=== PATIENT | female | born 1945 | race African-American/Black ===

== ENCOUNTER → 2016-11-17 | Day surgery (SDC) | payer BC, MEDICAID ==
[~2016-11-17] VITALS: Ht 167.6 cm; Wt 92.1 kg
[~2016-11-17] MED LIST: AMLODIPINE BESYL5 MG ORAL; ARICEPT10 MG ORAL; ASPIR 8181 MG ORAL; ATORVASTATIN CA80 MG ORAL; BSS 15ml BTL ONE; BSS 500ml btl ONE; Dexamethasone 4mg/ml vial ONE; EPINEPHrine 1mg/1ml Amp ONE; FLONASE ALLERG9.9 ML NS; KEPPRA1000 MG ORAL; LASIX40 MG ORAL; LR 1000ml ONE; Lidocaine 1% MPF 10mg/ml 5ml ONE; METOPROLOL SUCC25 MG ORAL; MULTIVITAMINS1 EAC2 ORAL; Midazolam 2mg/2ml Inj ONE; NEURONTIN100 MG ORAL; NITROSTAT0.4 M1 SL; NORCO 5-325 TA1 EAC1 ORAL; NS Irrig 1000ml ONE; PANTOPRAZOLE SO40 MG ORAL; PLAQUENIL200 MG ORAL; PLAVIX75 MG ORAL; PROAIR HFA8.5 GM INH; PROZAC20 MG ORAL; Povidone-Iodine 5% opth solution ONE; REQUIP0.25 MG ORAL; RESTASIS1 EACH BOTH EYES; Sodium Hyaluronate 14 mg/ml 0.85ml ONE; Sterile Water Irrig 1000ml IRRIG ONE; VOLTAREN100 G1 TP; XANAX0.5 MG ORAL; fentaNYL 100 mcg/2 mL IV ONE
--- NOTE | 2016-11-17 07:46 | Pre-Procedure Note/Attestation ---
Pre-Procedure Note/Attestation Complete Prior to Procedure Planned Procedure: left Procedure Narrative: cataract extraction with implant left eye Indications for Procedure Pre-Operative Diagnosis: cataract left eye Attestation I attest that I discussed the nature of the procedure; its benefits; risks and complications; and alternatives (and the risks and benefits of such alternatives ), prior to the procedure, with the patient (or the patient's legal printing sales representative). I attest that, if there was a reasonable possibility of needing a blood transfusion, the patient (or the patient's legal printing sales representative) was given the [facility] standardized written summary, pursuant to the [place] Blood Safety Act ([place] Health and Safety Code # 1645, as amended). I attest that I re-evaluated the patient just prior to the surgery and that there has been no change in the patient's H&P, except as documented below: SHANNON GAMING Nov 17, 2016 07:46
[2016-11-17] MEDS: Tropicamide 1% Opth Soln LEFT EYE SCH ×3 (09:21→09:44)
[2016-11-17] MEDS: Phenylephrine 2.5% Op Soln LEFT EYE SCH ×3 (09:21→09:44)
[2016-11-17] MEDS: Diclofenac Sod 0.1% Op Soln LEFT EYE SCH ×3 (09:22→09:45)
[2016-11-17] MEDS: Gatifloxacin Opth Solution 0.5% LEFT EYE SCH ×3 (09:22→09:45)
[2016-11-17] MEDS: Tobradex Opth Susp 2.5ml LEFT EYE SCH ×3 (09:22→09:45)
[2016-11-17] MEDS: Akten 3.5% 1ml Btl LEFT EYE SCH ×3 (09:23→09:45)
[2016-11-17 09:56] VITALS: BP 137/78
--- NOTE | 2016-11-17 10:17 | Anethesia Preoperative Eval ---
Anesthesia Pre-op PMH/ROS General Date of Evaluation: Nov 17, 2016 Time of Evaluation: 10:15 Anesthesiologist: terrance ASA Score: ASA 3 Mallampati Score Class I : Soft palate, uvula, fauces, pillars visible Class II: Soft palate, uvula, fauces visible Class III: Soft palate, base of uvula visible Class IV: Only hard plate visible Mallampati Classification: Class III Surgeon: conrad Diagnosis: cataract Surgical Procedure: cataract extraction left eye Anesthesia History: none Family History: no anesthesia problems Allergies: Coded Allergies: No Known Allergies (Unverified , 08/31/16) Medications: see eMAR Past Medical History Cardiovascular: Reports: CAD, HTN, arrhythmia Gastrointestinal/Genitourinary: Denies: CRI, ESRD, GERD, other Neurologic/Psychiatric: Reports: CVA, depression/anxiety Endocrine: Reports: DM HEENT: Reports: cataract (L) Hematology/Immune: Reports: DVT Musculoskeletal/Integumentary: Reports: OA Other: obesity PSxH Narrative: ICD placement Anesthesia Pre-op Phys. Exam Physician Exam Last Vital Signs Date Time Temp Pulse Resp B/P Pulse Ox O2 Delivery O2 Flow Rate FiO2 11/17/16 09:56 97.2 61 18 137/78 98 Room Air Constitutional: NAD Neurologic: CN 2-12 intact Cardiovascular: RRR Respiratory: CTA Gastrointestinal: S/NT/ND Airway Exam Mallampati Classification 3 MO: full ROM: full Dentures: no lower, no upper Anesthesia Pre-op A/P Studies Pre-op Studies: EKG - SR Risk Assessment & Plan Assessment: denies CP/SOB Plan: mac Status Change Before Surgery: No Pre-Antibiotics Drug: none JONA CERRATO CRNA Nov 17, 2016 10:17
[2016-11-17 10:25] VITALS: BP 136/81
--- NOTE | 2016-11-17 10:28 | Brief Operative Note ---
Immediate Post Operative Note Operative Note Pre-op Diagnosis: cataract left eye Procedure: phacoemulsification of cataract with implant left eye Post-op Diagnosis: same as pre-op Surgeon: shannon martines Lumber Press Operator: none Anesthesiologist: ryan carlos crna Anesthesia: MAC Specimen: none Complications: none Condition: stable Estimated Blood Loss: none Drains: none Implant(s) used?: Yes SHANNON MARTINES Nov 17, 2016 10:28
[2016-11-17 10:30] VITALS: BP 136/75
[2016-11-17 10:35] VITALS: BP 135/76
[2016-11-17 10:50] VITALS: BP 134/79
--- NOTE | 2016-11-17 10:52 | 48 Hour Post Anesthesia Eval ---
Post Anesthesia Evaluation Procedure: cataract extraction Date of Evaluation: Nov 17, 2016 Time of Evaluation: 10:52 Blood Pressure Systolic: 135 0: 76 Pulse Rate: 74 Respiratory Rate: 14 O2 Sat by Pulse Oximetry: 98 Airway: patent Nausea: No Vomiting: No Hydration Status: adequate Mental Status/LOC: patient returned to baseline Post-Anesthesia Complications: none Follow-up care needed: N/A JONA CERRATO CRNA Nov 17, 2016 10:52
--- NOTE | 2016-11-17 10:53 | Immediate Post-Op Evaluation ---
Immediate Post-Op Evalulation Immediate Post-Op Evalulation Procedure: cataract extraction Date of Evaluation: Nov 17, 2016 Time of Evaluation: 10:28 IV Fluids: 300 Blood Pressure Systolic: 136 Blood Pressure Diastolic: 81 Pulse Rate: 62 Respiratory Rate: 14 Temperature (Fahrenheit): 97.7 Nausea: No Vomiting: No Complications none Patient Status: awake, reacts, patent Hydration Status: adequate Drug: none JONA CERRATO CRNA Nov 17, 2016 10:53
[2016-11-17 10:55] VITALS: BP 134/77
--- NOTE | 2016-11-17 16:58 | Operative Note - Dictated ---
DATE OF OPERATION: 11/17/2016 PREOPERATIVE DIAGNOSIS: Cataract, left eye. POSTOPERATIVE DIAGNOSIS: Cataract, left eye. PROCEDURE: Phacoemulsification of the cataract, left eye, with placement of posterior chamber intraocular lens. SURGEON: Gucci Bueno M.D. ([facility] [place]) GRADER PATROL: None. ANESTHESIA: MAC/topical. ANESTHESIOLOGIST: Katelyn Yo C.R.N.A. INDICATION FOR PROCEDURE: Poor vision, left eye. DESCRIPTION OF FINDINGS: Nuclear sclerotic cataract, left eye. DESCRIPTION OF PROCEDURE: The patient received a topical anesthetic block consisting of 3.5% Akten eye drops. The eye was then prepped and draped in the usual manner. A lid speculum was placed. An operating Zeiss microscope was positioned. A temporal corneal groove was made with the randy blade. A SuperSharp blade made a stab incision at the 6 o'clock position. A 0.1 mL of 1% nonpreserved intracameral lidocaine was injected. Healon was instilled into the anterior chamber, and a 2.5/2.8 mm trapezoidal randy blade was used to complete the temporal corneal wound. A cystotome was used to create an anterior capsular flap. Utrata forceps were used to complete the capsulorrhexis. BSS on a cannula was used to hydrodissect the nucleus. The lens nucleus was phacoemulsified in a phaco-fracture technique. Remaining cortical material was removed with the I/A and the posterior capsule was polished with the I/A on Cap vac. Healon was instilled in a capsular bag and anterior chamber, and an Antonio foldable one-piece posterior chamber intraocular lens, model ZCB00, power 23.0 diopter, serial #[id number], was placed in the injector. The lens was put into the capsular bag. The I/A tip was used to remove the Healon and position the lens. The wound edge was hydrated with BSS on a blunt-tipped cannula. The wound was checked and found to be watertight. The lid speculum was removed, and a drop of TobraDex and Zymaxid was placed. A clear plastic shield was taped over the eye. The patient tolerated the procedure well and left the operating room in good condition condition. Gucci Bueno M.D. ([facility]) DR: LETICIA JOB#: [id number] CC: Deidre Wang M.D.
== END | disposition home or self-care (01) ==
LOC: SUR 07:47
DX: H25.12 Age-related nuclear cataract, left eye (principal); I25.10 Atherosclerotic heart disease of native coronary artery without angina pectoris; I49.9 Cardiac arrhythmia, unspecified; I50.32 Chronic diastolic (congestive) heart failure; G40.909 Epilepsy, unspecified, not intractable, without status epilepticus; G43.909 Migraine, unspecified, not intractable, without status migrainosus; E11.42 Type 2 diabetes mellitus with diabetic polyneuropathy; Z79.4 Long term (current) use of insulin; I10 Essential (primary) hypertension; E78.5 Hyperlipidemia, unspecified; F17.210 Nicotine dependence, cigarettes, uncomplicated; F33.40 Major depressive disorder, recurrent, in remission, unspecified; I69.365 Other paralytic syndrome following cerebral infarction, bilateral; G82.20 Paraplegia, unspecified; F41.9 Anxiety disorder, unspecified; Z86.718 Personal history of other venous thrombosis and embolism; Z79.3 Long term (current) use of hormonal contraceptives; Z79.02 Long term (current) use of antithrombotics/antiplatelets; Z90.49 Acquired absence of other specified parts of digestive tract
CPT/HCPCS: 66984; J0171; J1100; J2250; J3010; J7120; V2632; 94003; 94150

== ENCOUNTER 2017-01-12 06:06 | Day surgery (SDC) | payer BC, MEDICAID ==
[~2017-01-12] VITALS: Ht 167.6 cm; Wt 88.9 kg
[2017-01-12] VITALS (9 sets, daily range): BP systolic 131–149; BP diastolic 73–87
[~2017-01-12 06:06] MED LIST changes: -BSS 15ml BTL ONE; -BSS 500ml btl ONE; -Dexamethasone 4mg/ml vial ONE; -EPINEPHrine 1mg/1ml Amp ONE; -LR 1000ml ONE; -Lidocaine 1% MPF 10mg/ml 5ml ONE; -Midazolam 2mg/2ml Inj ONE; -NS Irrig 1000ml ONE; -Povidone-Iodine 5% opth solution ONE; -Sodium Hyaluronate 14 mg/ml 0.85ml ONE; -Sterile Water Irrig 1000ml IRRIG ONE; -fentaNYL 100 mcg/2 mL IV ONE
[2017-01-12] MEDS ORDERED: Akten 3.5% 1ml Btl ONE (06:27)
[2017-01-12] MEDS ORDERED: Diclofenac Sod 0.1% Op Soln ONE (06:27)
[2017-01-12] MEDS ORDERED: Tropicamide 1% Opth Soln ONE (06:28)
[2017-01-12] MEDS ORDERED: Phenylephrine 2.5% Op Soln ONE (06:28)
[2017-01-12] MEDS ORDERED: Tobradex Opth Susp 2.5ml ONE (06:28)
[2017-01-12] MEDS ORDERED: Gatifloxacin Opth Solution 0.5% ONE (06:28)
[2017-01-12] MEDS: Akten 3.5% 1ml Btl RIGHT EYE SCH ×3 (06:36→06:57)
[2017-01-12] MEDS: Phenylephrine 2.5% Op Soln RIGHT EYE SCH ×3 (06:36→06:57)
[2017-01-12] MEDS: Tropicamide 1% Opth Soln RIGHT EYE SCH ×3 (06:36→06:57)
[2017-01-12] MEDS: Diclofenac Sod 0.1% Op Soln RIGHT EYE SCH ×3 (06:36→06:57)
[2017-01-12] MEDS: Gatifloxacin Opth Solution 0.5% RIGHT EYE SCH ×3 (06:37→06:57)
[2017-01-12] MEDS: Tobradex Opth Susp 2.5ml RIGHT EYE SCH ×3 (06:37→06:57)
[2017-01-12] MEDS ORDERED: BSS 500ml btl ONE (06:56)
[2017-01-12] MEDS ORDERED: Dexamethasone 4mg/ml vial ONE (06:57)
[2017-01-12] MEDS ORDERED: Povidone-Iodine 5% opth solution ONE (06:57)
[2017-01-12] MEDS ORDERED: Lidocaine 1% MPF 10mg/ml 5ml ONE (06:57)
[2017-01-12] MEDS ORDERED: Sodium Hyaluronate 14 mg/ml 0.85ml ONE (06:58)
[2017-01-12] MEDS ORDERED: BSS 15ml BTL ONE (06:58)
[2017-01-12] MEDS ORDERED: Carbachol 0.01% Op Soln 1.5ml vial ONE (06:58)
[2017-01-12] MEDS ORDERED: EPINEPHrine 1mg/1ml Amp ONE (06:58)
[2017-01-12] MEDS ORDERED: DiphenhydrAMINE 50mg/ml Inj ONE (07:14)
[2017-01-12] MEDS ORDERED: Sterile Water Irrig 1000ml IRRIG ONE (07:30)
[2017-01-12] MEDS ORDERED: NS Irrig 1000ml ONE (07:30)
--- NOTE | 2017-01-12 07:37 | Pre-Procedure Note/Attestation ---
Pre-Procedure Note/Attestation Complete Prior to Procedure Planned Procedure: right Procedure Narrative: cataract extraction with implant right eye Indications for Procedure Pre-Operative Diagnosis: cataract right eye Attestation I attest that I discussed the nature of the procedure; its benefits; risks and complications; and alternatives (and the risks and benefits of such alternatives ), prior to the procedure, with the patient (or the patient's legal novelties sales representative). I attest that, if there was a reasonable possibility of needing a blood transfusion, the patient (or the patient's legal novelties sales representative) was given the [facility] standardized written summary, pursuant to the [place] Blood Safety Act ([place] Health and Safety Code # 1645, as amended). I attest that I re-evaluated the patient just prior to the surgery and that there has been no change in the patient's H&P, except as documented below: SHANNON GAMING January 12, 2017 07:37
--- NOTE | 2017-01-12 07:37 | Anethesia Preoperative Eval ---
Anesthesia Pre-op PMH/ROS General Date of Evaluation: January 12, 2017 Anesthesiologist: David ASA Score: ASA 4 Mallampati Score Class I : Soft palate, uvula, fauces, pillars visible Class II: Soft palate, uvula, fauces visible Class III: Soft palate, base of uvula visible Class IV: Only hard plate visible Mallampati Classification: Class III Surgeon: Myles Diagnosis: Right cataract Surgical Procedure: Right cataract extraction with IOL Anesthesia History: none Social History: smoking - quit smoking 2 weeks ago Family History: no anesthesia problems Allergies: Coded Allergies: No Known Allergies (Unverified , 08/31/16) Medications: see eMAR Past Medical History Cardiovascular: Reports: CAD - s/p [place], s/p multiple stents, HTN, arrhythmia - h /o VTach s/p AICD placement-last checked 07/2016, other - HCM, Denies: [place], valve dz Pulmonary: Reports: other - sarcoidosis-stable, Denies: COPD, [place]AK[place], asthma Gastrointestinal/Genitourinary: Denies: CRI, ESRD, GERD, other Neurologic/Psychiatric: Reports: 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 Exam Physician Exam Last Vital Signs Date Time Temp Pulse Resp B/P Pulse Ox O2 Delivery O2 Flow Rate FiO2 01/12/17 06:49 97.8 60 20 143/87 96 Room Air Constitutional: NAD Cardiovascular: RRR Respiratory: CTA Airway Exam Mallampati Score: Class III ROM: limited Teeth: missing, intact Anesthesia Pre-op A/P Labs see chart Studies Pre-op Studies: EKG - NSR with LVH, echo - EF 75%, PAP 31mm Hg Risk Assessment & Plan Assessment: ASA IV Plan: MAC Status Change Before Surgery: No Pre-Antibiotics Drug: N/A STELLA ADKINS M.D. January 12, 2017 07:37
[2017-01-12] MEDS ORDERED: LR 1000ml 1,000 ML IVLG SCH (07:43)
[2017-01-12] MEDS ORDERED: DiphenhydrAMINE 50mg/ml Inj IVP PRN (07:45)
--- NOTE | 2017-01-12 08:07 | Brief Operative Note ---
Immediate Post Operative Note Operative Note Pre-op Diagnosis: cataract right eye Procedure: phacoemulsification of cataract with implant right eye Post-op Diagnosis: same as pre-op Surgeon: shannon martines Tucking Machine Operator: none Anesthesiologist: leslie elkins md Anesthesia: MAC Specimen: none Complications: none Condition: stable Estimated Blood Loss: none Drains: none Implant(s) used?: Yes SHANNON MARTINES January 12, 2017 08:07
--- NOTE | 2017-01-12 08:08 | Immediate Post-Op Evaluation ---
Immediate Post-Op Evalulation Immediate Post-Op Evalulation Procedure: Right cataract extraction with IOL Date of Evaluation: January 12, 2017 Time of Evaluation: 08:09 IV Fluids: 200 Blood Products: 0 Estimated Blood Loss: 0 Urinary Output: 0 Blood Pressure Systolic: 133 Blood Pressure Diastolic: 79 Pulse Rate: 60 Respiratory Rate: 16 O2 Sat by Pulse Oximetry: 97 Temperature (Fahrenheit): 97.6 Pain Score (1-10): 0 Nausea: No Vomiting: No Complications 0 Patient Status: awake, reacts, patent, none Hydration Status: adequate Drug: N/A STELLA ADKINS M.D. January 12, 2017 08:08
--- NOTE | 2017-01-12 09:09 | 48 Hour Post Anesthesia Eval ---
Post Anesthesia Evaluation Procedure: Right cataract extraction with IOL Date of Evaluation: January 12, 2017 Time of Evaluation: 09:10 Blood Pressure Systolic: 145 0: 84 Pulse Rate: 60 Respiratory Rate: 20 Temperature (Fahrenheit): 97.6 O2 Sat by Pulse Oximetry: 100 Airway: patent Nausea: No Vomiting: No Pain Intensity: 0 Hydration Status: adequate Cardiopulmonary Status: at baseline Mental Status/LOC: patient returned to baseline Post-Anesthesia Complications: 0 Follow-up care needed: ready to discharge STELLA ADKINS M.D. January 12, 2017 09:09
--- NOTE | 2017-01-12 10:08 | Operative Note - Dictated ---
DATE OF OPERATION: 01/12/2017 PREOPERATIVE DIAGNOSIS: Cataract, right eye. POSTOPERATIVE DIAGNOSIS: Cataract, right eye. PROCEDURE: Phacoemulsification of cataract, right eye with placement of posterior chamber intraocular lens. SURGEON: Gucci Bueno M.D. DESIGN INSERTER: None. ANESTHESIA: MAC/topical. ANESTHESIOLOGIST: Nanette Lassiter M.D. INDICATION FOR PROCEDURE: Poor vision, right eye. DESCRIPTION OF FINDINGS: Nuclear sclerotic cataract, right eye. DESCRIPTION OF PROCEDURE: The patient received a topical anesthetic block consisting of 3.5% Akten eye drops. The eye was then prepped and draped in usual manner. A lid speculum was placed. An operating Zeiss microscope was positioned. The temporal corneal groove was made with a randy blade. A SuperSharp blade made a stab incision at the 12 o'clock position. A 0.1 mL of 1% nonpreserved intra cameral lidocaine was injected. Healon was instilled into the anterior chamber. A 2.5/2.8 mm trapezoidal randy blade was used to complete the temporal corneal wound. A cystotome was used to create an anterior capsular flap. Utrata forceps were used to complete the capsulorrhexis. BSS on a cannula was used to hydrodissect the nucleus. The lens nucleus was phacoemulsified in a phaco-fracture technique. Remaining cortical material was removed with the I/A and the posterior capsule polished with the I/A on Cap vac. Healon was instilled in the capsular bag and anterior chamber, and an Antonio fold one-piece posterior chamber intraocular lens model ZCB00, power 23.0 diopter, serial #[id number] was placed in the injector. The lens was put in the capsular bag. The I/A tip was used to remove the Healon and position the lens. The wound edge was hydrated with BSS and a blunt-tipped cannula. The wound was checked and found to be watertight. The lid speculum was removed and a drop of TobraDex and Zymaxid was placed. A clear plastic shield was taped over the eye. The patient tolerated well and left the operating room in good condition. Gucci Bueno M.D. ([facility] [place]) DR: GERALD JOB#: [id number] CC: ATTIANA
== END 2017-01-12 09:20 | disposition home or self-care (01) ==
LOC: SUR 06:06
DX: H25.11 Age-related nuclear cataract, right eye (principal); I25.10 Atherosclerotic heart disease of native coronary artery without angina pectoris; Z95.5 Presence of coronary angioplasty implant and graft; D86.9 Sarcoidosis, unspecified; I42.2 Other hypertrophic cardiomyopathy; I50.32 Chronic diastolic (congestive) heart failure; I47.2 Ventricular tachycardia; I51.7 Cardiomegaly; E11.42 Type 2 diabetes mellitus with diabetic polyneuropathy; I10 Essential (primary) hypertension; G40.909 Epilepsy, unspecified, not intractable, without status epilepticus; F33.40 Major depressive disorder, recurrent, in remission, unspecified; G25.81 Restless legs syndrome; F03.90 Unspecified dementia, unspecified severity, without behavioral disturbance, psychotic disturbance, mood disturbance, and anxiety; G43.909 Migraine, unspecified, not intractable, without status migrainosus; M54.81 Occipital neuralgia; E78.5 Hyperlipidemia, unspecified; H04.129 Dry eye syndrome of unspecified lacrimal gland; M50.30 Other cervical disc degeneration, unspecified cervical region; M47.892 Other spondylosis, cervical region; F13.20 Sedative, hypnotic or anxiolytic dependence, uncomplicated; E04.1 Nontoxic single thyroid nodule; Z86.718 Personal history of other venous thrombosis and embolism; I69.359 Hemiplegia and hemiparesis following cerebral infarction affecting unspecified side; Z87.891 Personal history of nicotine dependence; Z95.810 Presence of automatic (implantable) cardiac defibrillator
CPT/HCPCS: 66984; 82962; J0171; J1100; J1200; V2632; 94003; 94150